=== PATIENT | male | born 1950 | race Caucasian/White ===

== ENCOUNTER 2023-09-19 07:41 | Outpatient (CLI) | payer MEDICARE, OTHER | END 2023-09-19 07:42 | disposition home or self-care (01) | LOC: CSHCT 07:41 | PROVIDERS: ATTEND Urology | DX: N30.41 Irradiation cystitis with hematuria (principal); N32.89 Other specified disorders of bladder; Z90.79 Acquired absence of other genital organ(s); K57.30 Diverticulosis of large intestine without perforation or abscess without bleeding; R91.8 Other nonspecific abnormal finding of lung field; I70.90 Unspecified atherosclerosis | CPT/HCPCS: 74178 ==